=== PATIENT | male | born 1985 | race Caucasian/White ===

== ENCOUNTER 2024-06-08 07:00 | Outpatient (CLI) | payer OTHER, SELFPAY ==
--- NOTE | 2024-06-08 07:15 | CRLHL7_ITS ---
For Patients: As a result of the Century Cures Act, medical imaging exams and procedure reports are released immediately into your electronic medical record. You may view this report before your referring provider. If you have questions, please contact your health care provider. INDICATION: Right upper quadrant abdomen pain. TECHNIQUE: Ultrasound abdomen limited. Sonographic images of the right upper quadrant were obtained using george-scale and color Doppler images. COMPARISON: None. FINDINGS: Liver: Normal in size and echotexture. No masses. No intrahepatic biliary dilatation. Gallbladder: Mobile stones and sludge. Normal wall thickness. No pericholecystic fluid. Common bile duct: 4 mm. No evidence of biliary ductal dilation. Pancreas: Tail is poorly visualized due to bowel gas. Remainder of the pancreas is unremarkable. Right kidney: Normal in size measuring 10.9 centimeters in length. Normal echotexture and cortex. No hydronephrosis or nephrolithiasis. Vasculature: Normal flow direction of the main portal vein. The proximal aorta is visualized and measures up to 2.3 centimeters. Remainder of the aorta was not evaluated. IMPRESSION: Cholelithiasis without evidence of cholecystitis. Dictated by Antonina Ellsworth MD @ 06/08/2024 7:35:08 AM (Electronically Signed)
== END 2024-06-08 07:01 | disposition home or self-care (01) ==
LOC: US 07:01
PROVIDERS: Visit Provider Physician Assistant
DX: R10.11 Right upper quadrant pain (principal); K80.20 Calculus of gallbladder without cholecystitis without obstruction
CPT/HCPCS: 76705